=== PATIENT | female | born 1970 ===

== ENCOUNTER 2018-01-05 05:00 | Day surgery (SDC) | payer OTHER ==
[~2018-01-05 05:00] MED LIST: ASA81 MG PO; AVALIDE 300-121 EACH PO; CARDIZEM CD180 M1 PO
[2018-01-05] MEDS ORDERED: KETO10TA2 PO (08:11)
== END 2018-01-05 12:20 | disposition home or self-care (01) ==
LOC: CIR.AMB 05:00
DX: N95.0 Postmenopausal bleeding (principal)